=== PATIENT | female | born 1930 | race Caucasian/White ===

== ENCOUNTER → 2016-12-26 | Outpatient (CLI) | payer MEDICARE ==
[~2016-12-26] MED LIST: AMIO200T2 PO; ASPI-556 PO; CEPH-582 PO; FURO40 PO; GABA-531 PO; KDUR10 PO; LOVA40TA2 PO; METF500T4 PO; METO50 PO; OMEP20CA4 PO; RIVA20TA PO
== END | disposition home or self-care (01) ==
LOC: RADPV 10:28
PROVIDERS: ATTEND Family Medicine
DX: M19.011 Primary osteoarthritis, right shoulder (principal)